=== PATIENT | female | born 1995 | race Caucasian/White ===

== ENCOUNTER 2017-07-13 02:26 | Inpatient (IN) | payer BC ==
[~2017-07-13] VITALS: Ht 177.8 cm; Wt 96.4 kg
[2017-07-13] VITALS (26 sets, daily range): BP systolic 108–157; BP diastolic 54–903; PULSE 71–121; TEMP 97.8–98
[2017-07-13] MEDS ORDERED: PRENATAL PO (05:29)
[2017-07-13 05:36] LABS: BASO % 0.4 % (0.0-2.0); EOS # 0.2 (0.0-0.7); EOS % 1.9 % (0-4.0); GRAN # 5.5 (1.4-6.5); GRAN % 59.9 % (42.2-75.2); HEMATOCRIT 38.2 % (37.0-47.0); HEMOGLOBIN 13.4 g/dl (12.5-16.0); LYMPH # 2.6 (1.2-3.4); LYMPH % 28.5 % (20.0-51.0); MEAN CELL VOLUME 93 fl (80.0-100.0); MEAN CORPUSCULAR HEMOGLOBIN 32 pg (27.0-31.0); MEAN CORPUSCULAR HGB CONC 35 g/dl (33.0-37.0); MEAN PLATELET VOLUME 13.3 fl (7.4-10.4); MONO # 0.8 (0.1-0.6); MONO % 8.8 % (1.7-9.3); PLATELET COUNT 157 K/mm3 (130-400); RED BLOOD COUNT 4.13 M/mm3 (4.10-5.30); WHITE BLOOD COUNT 9.2 K/mm3 (4.8-10.8)
[2017-07-14 04:00] VITALS: BP 120/78; PULSE 80; TEMP 98
[2017-07-14 07:50] VITALS: BP 112/71; PULSE 79; TEMP 98.2
[2017-07-14] MEDS ORDERED: IBU600 MG PO (08:56)
== END 2017-07-14 13:50 | disposition home or self-care (01) | DRG 775 ==
LOC: LDRO 02:26 → LDR 02:35 → OB 09:52
PROVIDERS: Obstetrics & Gynecology
PROC: 10E0XZZ Delivery of Products of Conception, External Approach (ICD-10-PCS; principal; 2017-07-13)
PROC: 0KQM0ZZ Repair Perineum Muscle, Open Approach (ICD-10-PCS; 2017-07-13)
PROC: 0UQKXZZ Repair Hymen, External Approach (ICD-10-PCS; 2017-07-13)
DX: O69.81X0 Labor and delivery complicated by cord around neck, without compression, not applicable or unspecified (principal); O70.1 Second degree perineal laceration during delivery; O70.0 First degree perineal laceration during delivery; Z37.0 Single live birth; Z3A.39 39 weeks gestation of pregnancy
CPT/HCPCS: J2210; J2590; J7120